=== PATIENT | male | born 1975 | race Caucasian/White ===

== ENCOUNTER → 2024-02-15 17:01 | Outpatient (REF) | payer OTHER, SELFPAY | LOC: RAD 17:01 | PROVIDERS: ATTENDING PHYSICIAN Student in an Organized Health Care Education/Training Program | DX: M79.662 Pain in left lower leg (principal) | CPT/HCPCS: 93971 ==

== ENCOUNTER → 2024-02-17 21:21 | Outpatient (REF) | payer OTHER, SELFPAY | LOC: MRI 3T 21:21 | PROVIDERS: ATTENDING PHYSICIAN Student in an Organized Health Care Education/Training Program; FAMILY PHYSICIAN Student in an Organized Health Care Education/Training Program | DX: M25.572 Pain in left ankle and joints of left foot (principal); M79.662 Pain in left lower leg | CPT/HCPCS: 73718; 73721 ==